=== PATIENT | male | born 1935 | race Caucasian/White ===

== ENCOUNTER → 2018-04-20 | Outpatient (CLI) | payer OTHER ==
[~2018-04-20] MED LIST: ALLOPURINOL100 MG PO; ASPIRIN ADULT L81 M1 PO; ATENOLOL25 MG PO; ATORVASTATIN CA20 M1 PO; BACTROBAN CREAM15 GM T; CLEOCIN150 MG PO; CO Q 10; CORDROL20 MG PO; LIPITOR20 MG PO; OSTEO-BI-FLEX 21 TAB PO; SAW PALMETTO; VICODIN 5/500 505 MG PO; ZOCOR20 MG PO; [UNRECOGNIZED DRUG - OTHER]
== END | disposition home or self-care (01) ==
LOC: LAB 08:16
DX: R51 Headache (principal)

== ENCOUNTER 2018-06-25 04:20 | Emergency (ER) | payer OTHER ==
[~2018-06-25] VITALS: Ht 170.1 cm; Wt 72.6 kg
== END 2018-06-25 05:11 | disposition home or self-care (01) ==
LOC: ED 04:20
DX: R04.0 Epistaxis (principal); F43.9 Reaction to severe stress, unspecified; Z88.8 Allergy status to other drugs, medicaments and biological substances; Z79.899 Other long term (current) drug therapy; Z79.82 Long term (current) use of aspirin

== ENCOUNTER 2019-01-28 10:32 | Inpatient (IN) | payer OTHER ==
[~2019-01-28] VITALS: Ht 172.7 cm; Wt 68.1 kg
--- NOTE | ~2019-01-28 | PR ---
[place], [place] PROGRESS NOTE [id number] UNIT #: [id number] ROOM: 523 DOCTOR: PRINCE, PHD STACIA BIRTHDATE: [birth year] DOS: 01/31/2019 SUBJECTIVE: I followed up with the patient regarding competency. The patient had made a statement to his son about needing to withdraw $1300 out of his bank account to throw a alliance party to celebrate his 's birthday. The patient has been apparently making poor judgment calls regarding his finances and giving money away. I administered the MoCA and judgment portions of the Cognistat to further assess his cognitive abilities. The patient earned an 18/30 on the MoCA with an intact score being 26. Mini trials B, Necker cube copy and clock drawing were all impaired. He could not draw the correct numbers on the clock or draw the hands at the right place. Attention was noteworthy for some impairment on serial 7 subtractions where he was able to complete 2/5 correct subtractions. He could perform a minimum of 5 digits forward and 3 digits backwards. With respect to language abilities, he made one small error of addition; on a test of repetition, he was able to produce 11 words in 1 minute, on verbal fluency, naming was intact. On a test of memory, the patient was able to recall 5/5 words and 3/5 words on immediate recall trials and 1/5 words after a brief delay. He was able to recall an additional 2 words with category cues and another two words with multiple choice. Verbal, abstraction was noteworthy for concreteness. On judgment questions taken from the Cognistat, he was able to provide some adequate answers, but needed some prompting to stay on task. The patient states that his son helps make decisions for him and he is very happy with this arrangement. His stepson is his durable power of document review attorney and health care power of document review attorney as well. Given the patient's significant executive functioning and memory issues as well as questionable judgment as well as poor judgment while living at home, he does not appear to be competent to make decisions at this time. He will likely need increased support at this time. DIAGNOSES: Brief psychotic disorder, unspecified neurocognitive disorder. RECOMMENDATIONS: The patient would benefit from utilizing his durable and healthcare power of document review attorney for decision making at this time. [place], [place] PROGRESS NOTE NAME: CARMEN WALTERS UNIT #: [id number] ROOM: 523 DOCTOR: PHD STACIA COLEY BIRTHDATE: [birth year] Suzanne Coley PhD CM:KEVIN [phone] PHD STACIA COLEY 02/01/19 0426 interface
--- NOTE | ~2019-01-28 | CON ---
[place], [place] REPORT OF CONSULTATION NAME: CARMEN WALTERS UNIT #: [id number] ROOM: 523 DOCTOR: ERIK VENTURA MD BIRTHDATE: [birth year] DOS: 01/29/2019 CHIEF COMPLAINT: "Are you a Taoist. If you are you understand. I pray to God and I was healed." HISTORY OF PRESENT ILLNESS: This is an 83-year-old white male who went to the Emergency Room at [facility] due to a change in mental status with bilateral lower leg edema. 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 He has had a colostomy with reversal and a recent craniotomy in May. The patient has been experiencing significant visual hallucinations and reported increased paranoia. The patient did state that God was coming in his house and Satan came into his house in the form of a fly flying around the house. The patient has also been making other bizarre comments. The patient has no previous psychiatric history. MENTAL STATUS EXAMINATION: This morning, the patient is alert and oriented with some time gaps. Mood does seem to be fairly euthymic and he was in good spirits. He reports no pain issues. He also reports good sleep and appetite. He does seem to be somewhat religiously preoccupied, although I do believe some of this is his baseline belief system. He does report seeing things that he at times questions if they are real. DIAGNOSIS: Brief psychotic disorder. PLAN: I will go ahead and start him on a low dose of Risperdal at night. I will avoid any medicines during the day as not to sedate him. We will start with Risperdal 1 mg at bedtime. The patient should follow up in our office if he returns back home if he returns to a long-term care facility for further treatment. This will be up to hospice whether or not they want psychiatric intervention. ERIK VENTURA MD CM:CONSTR:REPORT OF CONSULTATION 0949 01/29/19 1037 interface
--- NOTE | ~2019-01-28 | CON ---
[place], [place] REPORT OF CONSULTATION NAME: CARMEN WALTERS UNIT #: [id number] ROOM: 523 DOCTOR: PRINCE, PHD STACIA BIRTHDATE: [birth year] DOS: 01/30/2019 HISTORY OF PRESENT ILLNESS: The patient is an 83-year-old male referred by Xiomara Espinoza for competency evaluation. At the present time, the patient is on the 5th floor at [facility]. The patient had a change in mental status. His family is concerned about recent behaviors where he has refused his home health aide and has been making questionable choices with his finances. They are concerned about him being able to live at home. He is a . He reports having 3 children. 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 He denied alcohol, tobacco and illegal drug use. PAST MEDICAL HISTORY: Acute anterior epistaxis, CAD, closed rib fracture, colon cancer, elevated blood pressure, gout, hypertension, hypercholesterolemia, lumbar transverse process fracture, metastatic cancer. MEDICATIONS: Lasix, Risperdal, DuoNeb, Tenormin, Lovenox, Keppra, Phazyme 125, morphine sulfate concentrate, Dulcolax, milk of magnesia, Zofran, Tylenol, Levaquin, Decadron, K-Dur. The patient was sitting comfortably, in no apparent distress. He was awake, alert and oriented to person, place and generally to time. He could name. He could discuss his medical history at length and discussed some of his medications. He could spell world forward and backward. He could not complete any serial 7 subtractions. He was able to name the current president, the past president and discuss at length current events. Mood was euthymic and affect was appropriately wide ranging. He denied suicidal and homicidal ideation, plan, and intent. Speech and language were within normal limits conversationally. Thought process was tangential at times. He responded well to redirection. He appeared to be religiously preoccupied, although did not make any bizarre statements. He did not appear to be responding to any internal stimuli. He denied current hallucinations. He did appear to have some difficulty with short and long-term memory and conversation. He was seen by Dr. Bell on 01/29/2019 and started on Risperdal at night. DIAGNOSIS: Brief psychotic disorder. PLAN: I will meet with the patient tomorrow to continue to assess his mental status and determination of competency. Thank you very much for this consult. [place], [place] REPORT OF CONSULTATION NAME: CARMEN WALTERS UNIT #: [id number] ROOM: 523 DOCTOR: PRINCE, PHD STACIA BIRTHDATE: [birth year] Suzanne Coley, PhD CM:CONSTR:REPORT OF CONSULTATION 1434 01/31/19 0717 interface
--- NOTE | ~2019-01-28 | EKG ---
[place], [place] ELECTROCARDIOGRAM REPORT NAME: CARMEN WALTERS UNIT #: [id number] ROOM: DOCTOR: YAAKOV DRAFT REPORT BIRTHDATE: [birth year] [facility] Test Date: 2019-01-28 Test Time: 10:44:35 Pat Name: CARMEN WALTERS Department: Patient ID: ELOH- Room: Gender: Diesel Engine Inspector: : 1935 Requested By: YANIV SOMMER Order Number: [id number] Reading MD: Measurements Intervals [place] Rate: 84 P: 57 [place]: 200 QRS: 15 QRSD: 90 T: 193 QT: 344 QTc: 407 Interpretive Statements Sinus rhythm Repol abnrm suggests ischemia, anterolateral No previous ECG available for comparison CM:EKGRPT:ELECTROCARDIOGRAM REPORT 1044 0745 YANIV NUNO DRAFT REPORT YANIV SOMMER M.D.
--- NOTE | ~2019-01-28 | EKG ---
[place], [place] ELECTROCARDIOGRAM REPORT NAME: CARMEN WALTERS UNIT #: [id number] ROOM: 523 DOCTOR: YAAKOV DRAFT REPORT BIRTHDATE: [birth year] [facility] Test Date: 2019-01-28 Test Time: 10:44:35 Pat Name: CARMEN WALTERS Department: Room: 523 Gender: M Water Quality Assistant: : 1935 Requested By: YANIV SOMMER Order Number: [id number] Reading MD: Lalo Connors MD Measurements Intervals [place] Rate: 84 P: 57 [place]: 200 QRS: 15 QRSD: 90 T: 193 QT: 344 QTc: 407 Interpretive Statements Sinus rhythm Repol abnrm suggests ischemia, anterolateral Electronically Signed On 01-29-2019 6:51:43 PDT by Lalo Connors MD CM:EKGRPT:ELECTROCARDIOGRAM REPORT 1044 0651 YANIV NUNO DRAFT REPORT YANIV SOMMER M.D.
[2019-01-28] MEDS ORDERED: KEPPRA500 MG PO (10:35)
[2019-01-28] MEDS ORDERED: DEXAMETHASONE4 MG PO (10:35)
--- NOTE | 2019-01-28 10:35 | NUR ---
PT BROUGHT BY FAMILY FOR INCREASED CONFUSION, RASTAFARI AND POLITICAL DELUSIONS, MODERATE INCREASE IN PITTING EDEMA OVER THE LAST TWO DAYS. 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 THERE IS 3+ PITTING EDEMA B/L AND RALES IN LUNGS. PT DENIES ANY SOB OR ANY OTHER COMPLAINTS.
[2019-01-28] MEDS ORDERED: TENORMIN25 M1 PO (10:36)
[2019-01-28 10:38] VITALS: BP 136/5; BP 136/58
[2019-01-28] MEDS ORDERED: TYLENOL325 M2 PO (10:38)
[2019-01-28] MEDS ORDERED: MORPHINE S20 MG/5 ML PO (10:38)
[2019-01-28] MEDS ORDERED: GAS-X125 MG PO (10:38)
--- NOTE | 2019-01-28 10:45 | NUR ---
AT FAMILY AND POWER OF ARCHIVIST'S REQUEST, DNR-CC DOCUMENTATION IS NOW BEING GENERATED AND PLACED ON FILE AND COPIES PROVIDED TO FAMILY.
[2019-01-28 10:55] LABS: HEMOGLOBIN 11.8 g/dl (14.0-18.0); MEAN CELL VOLUME 84.5 fl (80.0-94.0); MEAN CORPUSCULAR HGB 28.5 pg (27.0-31.0); MEAN CORPUSCULAR HGB CONC 33.7 g/dl (33.0-37.0); MEAN PLATELET VOLUME 9.8 fl (9.6-12.3); NUCLEATED RED BLOOD CELL 0.2 % (0.0-0.0); PLATELET COUNT AUTOMATED 150 10*3/uL (130-400); RED BLOOD COUNT 4.14 10*6/uL (4.50-5.90); RED CELL DISTRI WIDTH 16.2 % (0-14.5); WHITE BLOOD COUNT 14.2 10*3/uL (4.8-10.8)
[2019-01-28 10:58] LABS: BILIRUBIN NEGATIVE (NEGATIVE); BLOOD TRACE-INTACT (NEGATIVE); CLARITY SL CLOUDY (CLEAR); COLOR YELLOW (YELLOW); GLUCOSE TRACE (NEGATIVE); KETONE NEGATIVE (NEGATIVE); LEUKO ESTERASE NEGATIVE (NEGATIVE); NITRITE NEGATIVE (NEGATIVE); PH 5.5 (5.0-9.0); SPECIFIC GRAVITY >= 1.030 (1.005-1.030)
[2019-01-28 11:11] LABS: BACTERIA 2+; COARSE GRANULAR CAST 20-30; FINE GRANULAR CAST TNTC; MUCOUS 2+
[2019-01-28 11:14] LABS: PLATELET SUFFICIENCY NORMAL (NORMAL); TOTAL CELLS COUNTED 100 #CELLS
[2019-01-28 11:26] LABS: ALBUMIN 2.7 gm/dl (3.1-4.5); ALKALINE PHOSPHATASE 237 U/L (45-117); BUN 40 mg/dl (7-24); CHLORIDE 98 mmol/L (98-107); CREATININE 1.21 mg/dL (0.70-1.30); POTASSIUM 3.9 mmol/L (3.5-5.1); SGOT/AST 19 IU/L (3-35); SGPT/ALT 38 U/L (12-78); SODIUM 132 mmol/L (136-145)
[2019-01-28 12:24] VITALS: BP 134/60
--- NOTE | 2019-01-28 12:26 | NUR ---
ADMISSION ORDER INPUT.
--- NOTE | 2019-01-28 12:57 | NUR ---
STILL AWAITING BED ASSIGNMENT. NO CHANGE IN PT CONDITIO OR COMPLAINT. SALINE AND LEVAQUIN INFUSING ORDERED. FAMILY AT BEDSIDE, VITALS STABLE AND WITHIN NORMAL LIMITS.
[2019-01-28] MEDS ORDERED: ATIVAN1 MG PO (13:12)
[2019-01-28] MEDS ORDERED: ROBITUSSIN5 ML PO (13:13)
[2019-01-28 13:36] VITALS: BP 163/69
--- NOTE | 2019-01-28 15:15 | NUR ---
NOTIFIED DR. ANDERSON OF CRITICAL LACTIC ACID OF 2.2, NO NEW ORDERS AT THIS TIME
[2019-01-28 16:00] VITALS: BP 115/65
--- NOTE | 2019-01-28 17:34 | NUR ---
DR. ANDERSON AWARE OF INCREASE IN LACTIC ACID LEVEL CRITICAL RESULT OF 4.1, ORDER TO HOLD 0600 DOSE OF LASIX TOMORROW SO THEY CAN REEVALUATE PATIENT
[2019-01-28 20:00] VITALS: BP 107/55
--- NOTE | 2019-01-28 21:00 | NUR ---
SITTING AT BEDSIDE WITH NO DISTRESS NOTED. RESPIRATIONS EASY. LUNGS DIMINISHED, CLEAR. PULSE OX 97% RA. +3 PITTING PEDAL EDEMA, TUBI-LUBE MAN APPLIED. CALL LIGHT WITHIN REACH. NO VOICED COMPLAINTS
--- NOTE | 2019-01-28 21:10 | NUR ---
24 HR chart check completed.
[2019-01-29] VITALS: BP 104/62
--- NOTE | 2019-01-29 | NUR ---
SLEEPING. NO DISTRESS NOTED. RESPIRATIONS EASY. VSS. CALL LIGHT WITHIN REACH
--- NOTE | 2019-01-29 06:00 | NUR ---
RESTED THROUGHOUT NIGHT WITH NO DISTRESS NOTED. RESPIRATIONS EASY. CALL LIGHT WITHIN REACH. NO VOICED COMPLAINTS THIS SHIFT
[2019-01-29 06:36] LABS: HEMATOCRIT 34.7 % (42.0-52.0); HEMOGLOBIN 11.7 g/dl (14.0-18.0); MEAN CELL VOLUME 83.8 fl (80.0-94.0); MEAN CORPUSCULAR HGB 28.3 pg (27.0-31.0); MEAN CORPUSCULAR HGB CONC 33.7 g/dl (33.0-37.0); PLATELET COUNT AUTOMATED 121 10*3/uL (130-400); RED BLOOD COUNT 4.14 10*6/uL (4.50-5.90); WHITE BLOOD COUNT 9.7 10*3/uL (4.8-10.8)
[2019-01-29 06:46] LABS: ALBUMIN 2.7 gm/dl (3.1-4.5); ALKALINE PHOSPHATASE 228 U/L (45-117); BUN 32 mg/dl (7-24); CHLORIDE 95 mmol/L (98-107); CREATININE 0.92 mg/dL (0.70-1.30); PHOSPHOROUS 2.9 mg/dL (2.5-4.9); SGOT/AST 19 IU/L (3-35); SGPT/ALT 35 U/L (12-78); SODIUM 131 mmol/L (136-145); TOTAL PROTEIN 6.1 gm/dL (6.4-8.2)
[2019-01-29 07:25] LABS: TOTAL CELLS COUNTED 100 #CELLS
[2019-01-29 07:30] LABS: PLATELET SUFFICIENCY LOW (NORMAL)
--- NOTE | 2019-01-29 07:47 | NUR ---
PHYSICAL THERAPY PT EVAL COMPLETED TODAY ON LEVEL 5: FULL EVALUATION TO FOLLOW. RECOMMEND PT WHILE HERE TO ADDRESS DECREASED STRENGTH, ENDURANCE , BALANCE AND THUS DECREASED FUNCTIONAL MOBILITY. PT EVAL IS MODERATE COMPLEXITY BASED ON CHART REVIEW, TEST RESULTS AND EVALUATION: [id number]. D/C RECOMMENDATIONS AT THIS TIME ARE HOME WITH HOSPICE AND FAMILY SUPPORT. THANK YOU FOR REFERRAL JEREMY CAMARA PT
[2019-01-29 08:00] VITALS: BP 130/64
--- NOTE | 2019-01-29 09:35 | NUR ---
CONSULT PLACED TO DR. VENTURA, ENDY SIMON COLD MEAT CHEF HAS ALREADY SPOKE TO DR. VENTURA, REGARDING NEW CONSULT. RN DID NOT CALL HIM FOR CONSULT.
[2019-01-29 12:00] VITALS: BP 122/66
--- NOTE | 2019-01-29 13:30 | NUR ---
Time: 1329 A 83 year old MALE admitted to 5E under services of LISA MUÑIZ DO. Pt. arrived via stretcher from ER. Chief complaint: CONFUSION. MEHUL OCAMPO
--- NOTE | 2019-01-29 19:17 | NUR ---
24 HR chart check completed.
[2019-01-29 20:00] VITALS: BP 130/63
--- NOTE | 2019-01-29 20:00 | NUR ---
SITTING ON TOILET. C/O CONSTIPATION. DULCOLAX ADMINISTERED EARLIER. WILL MONITOR
--- NOTE | 2019-01-29 21:00 | NUR ---
SITTING AT BEDSIDE WITH NO ACUTE DISTRESS NOTED. RESPIRATIONS EASY. LUNGS DIMINISHED, CLEAR. PULSE OX 99% RA. ABD SOFT WITH NORMO BS. +3 PITTING PEDAL EDEMA - TUBI-EXTRACT PULLER IN PLACE AND PATIENT ENCOURAGED TO ELEVATE BLE. CALL LIGHT WITHIN REACH. NO VOICED COMPLAINTS
--- NOTE | 2019-01-29 22:50 | NUR ---
CONTINUES TO C/O CONSTIPATION DESPITE EARLIER LARGE BM. MOM PROVIDED.
[2019-01-30] VITALS: BP 111/61
--- NOTE | 2019-01-30 | NUR ---
PATIENT ASSISTED TO BED AFTER BM. RESPIRATIONS EASY. VSS. CALL LIGHT WITHIN REACH. NO FURTHER VOICED COMPLAINTS
--- NOTE | 2019-01-30 03:00 | NUR ---
REMAINS AWAKE. NO DISTRESS NOTED. IN AND OUT OF BR, MULTIPLE SOFT, FORMED BM'S. DECLINES BATH. CALL LIGHT WITHIN REACH. NO VOICED COMPLAINTS
--- NOTE | 2019-01-30 06:30 | NUR ---
AWAKENED FOR AM MEDS.
[2019-01-30 06:44] LABS: HEMATOCRIT 35.5 % (42.0-52.0); MEAN CELL VOLUME 83.7 fl (80.0-94.0); MEAN CORPUSCULAR HGB 28.3 pg (27.0-31.0); MEAN CORPUSCULAR HGB CONC 33.8 g/dl (33.0-37.0); MEAN PLATELET VOLUME 10.5 fl (9.6-12.3); PLATELET COUNT AUTOMATED 140 10*3/uL (130-400); RED BLOOD COUNT 4.24 10*6/uL (4.50-5.90); RED CELL DISTRI WIDTH 16.2 % (0-14.5); WHITE BLOOD COUNT 10.1 10*3/uL (4.8-10.8)
[2019-01-30 07:17] LABS: ALBUMIN 2.9 gm/dl (3.1-4.5); BUN 33 mg/dl (7-24); CHLORIDE 91 mmol/L (98-107); CREATININE 1.21 mg/dL (0.70-1.30); SGOT/AST 18 IU/L (3-35); SGPT/ALT 35 U/L (12-78)
[2019-01-30 07:19] LABS: ALKALINE PHOSPHATASE 237 U/L (45-117); TOTAL PROTEIN 6.3 gm/dL (6.4-8.2)
[2019-01-30 07:22] LABS: SODIUM 131 mmol/L (136-145)
[2019-01-30 07:24] LABS: POTASSIUM 2.8 mmol/L (3.5-5.1)
[2019-01-30 07:49] LABS: OVALOCYTES FEW; PLATELET SUFFICIENCY NORMAL (NORMAL); TOTAL CELLS COUNTED 100 #CELLS
[2019-01-30 08:00] VITALS: BP 107/89
--- NOTE | 2019-01-30 09:15 | NUR ---
PHYSICAL THERAPY Patient seen this am 1;1 for therapy visit and was sitting up in bedsid chair upon therpaist arrival. Patient was very pleasant this morning, voicing no new c/o's and presented with B LE idalia wraps secondary to increased B foot edema. Patient instructed to elevate LE's via use of reclining bedside chair, along with PRN ankle pumps for edema control. Patient transfers sit to stand SBA and ambulates SBA, 150'x 1, wh walker, demonstrating smooth, even stride and only mild fatigue. Patient also no LOB during backward walk, 5'x 1 and 180 turns, returning to bedside chair with no c/o's. Patient remained in chair with LE's elevated, call light, tray table, cell phone and body alarm for safety. Will continue per POC as tolerated, total treatment time 14 minutes. Good Eaton, GERMINATION TESTING MANAGER
--- NOTE | 2019-01-30 10:30 | NUR ---
OT referral received.Patient on [facility] hospice service.Awaiting further information before proceeding with evaluation. Agustina Lopez OTR/L
--- NOTE | 2019-01-30 11:17 | NUR ---
DR. MORRISON'S OFFICE STAFF NOTIFIED OF CONSULT RE: COMPETENCY EVALUATION.
[2019-01-30 12:00] VITALS: BP 110/52
[2019-01-30 16:00] VITALS: BP 124/64
[2019-01-30 20:00] VITALS: BP 114/55
[2019-01-31] VITALS: BP 115/66
--- NOTE | 2019-01-31 07:43 | NUR ---
PT IS AWAKE AND SITTING UP ON THE SIDE OF THE BED. HE STATES THAT HE IS FEELING WELL AND JUST WAITING ON HIS BREAKFAST TO ARRIVE. RESPS ARE EASY AND NONLABORED. NO C/O OF PAIN OR DISCOMFORT AT THIS TIME. CALL LIGHT IS WITHIN REACH, WILL CONTINUE TO MONITOR.
--- NOTE | 2019-01-31 07:48 | NUR ---
24 HR CHART CHECK COMPLETE.
[2019-01-31 08:00] VITALS: BP 119/63
[2019-01-31 09:55] LABS: HEMATOCRIT 35.4 % (42.0-52.0); HEMOGLOBIN 11.9 g/dl (14.0-18.0); MEAN CELL VOLUME 85.7 fl (80.0-94.0); MEAN CORPUSCULAR HGB 28.8 pg (27.0-31.0); MEAN CORPUSCULAR HGB CONC 33.6 g/dl (33.0-37.0); MEAN PLATELET VOLUME 10.2 fl (9.6-12.3); PLATELET COUNT AUTOMATED 136 10*3/uL (130-400); RED BLOOD COUNT 4.13 10*6/uL (4.50-5.90); RED CELL DISTRI WIDTH 16.4 % (0-14.5); WHITE BLOOD COUNT 12.6 10*3/uL (4.8-10.8)
[2019-01-31 10:13] LABS: ALBUMIN 2.7 gm/dl (3.1-4.5); ALKALINE PHOSPHATASE 242 U/L (45-117); BUN 30 mg/dl (7-24); CHLORIDE 93 mmol/L (98-107); CREATININE 1.37 mg/dL (0.70-1.30); SGOT/AST 22 IU/L (3-35); SGPT/ALT 33 U/L (12-78); SODIUM 131 mmol/L (136-145); TOTAL PROTEIN 6.1 gm/dL (6.4-8.2)
[2019-01-31 10:15] LABS: PLATELET SUFFICIENCY NORMAL (NORMAL); SCHISTOCYTES FEW; TOTAL CELLS COUNTED 100 #CELLS
[2019-01-31 10:16] LABS: OVALOCYTES FEW; VACUOLATION OF NEUTROPHILS SLIGHT
[2019-01-31 10:22] LABS: POTASSIUM 3.9 mmol/L (3.5-5.1)
--- NOTE | 2019-01-31 11:29 | NUR ---
Occupational Therapy evaluation completed on 5 with full eval to follow. Precaution include fall risk, impulsivity,wh walker use, brief psychotic episode, being evaluated for competency,moderate complexity level 08462 via chart review, testing and evaluation. REcommend return home w/ family and 24 hr supervision and assist or at least assisted living v.s. LTC. Thank you. Agustina Lopez OTR/L
[2019-01-31 12:00] VITALS: BP 116/56
--- NOTE | 2019-01-31 12:47 | NUR ---
PT IS HER [facility]ER [facility]. WILL CONTINUE TO FOLLOW.
--- NOTE | 2019-01-31 14:43 | NUR ---
PHYSICAL THERAPY Patient presented to therapy in sitting position in bedside chair with body alarm attached to patient. Patient gives informed consent for treatment. Patient was identified by name and . Patient performed sit to stand transfer from bedside chair with CGA X 1. Patient ambulated 100' x 5 seperate gaits with Wh Walker and CGA X 1 , to mostly Close Supervision and NO LOB SOB or other difficulty. Patient performed TUG TEST in 35 seconds total with CGA. Patient performed 8 Xs sit to stands in 31 seconds total with SBA with use of UEs to push off armrests of chair. Patient was left sitting in bedside chair with LEs ELEVATED, CALL LIGHT WITHIN REACH, AND CHAIR ALARM TESTED AND ATTACHED TO PATIENT. Patient was 1:1 with this ABSORBER OPERATOR for 26 minutes total. KRISHAN LIEBERMAN ABSORBER OPERATOR
--- NOTE | 2019-01-31 14:45 | NUR ---
OT NOTE Pt was seen this P.M. 1:1 for 15 minute OT session. Upon arrival pt was sitting upright in the recliner. Pt identified by name and and had no complaints at this time. Pt completed sit to stand from chair level with CGA for safety. Functional mobility completed into the bathroom with CGA and use of w/w for UE support. There he transferred on/off standard commode with CGA for safety. Pt then stood sink side while washing his hands with CGA. Functional mobility completed back to the recliner where he was left sitting upright in the recliner with call light in hand, tray table in place, and phone in reach. Continue with rec D/C plan to home with 24 hour supervision and assist versus SENIOR CARE/LTC. TERRANCE Hand/Tsering
[2019-01-31 16:00] VITALS: BP 95/50
[2019-01-31 20:00] VITALS: BP 104/59
[2019-02-01] VITALS: BP 116/58
[2019-02-01 08:00] VITALS: BP 127/70
--- NOTE | 2019-02-01 10:39 | NUR ---
MANAGER LIFE spoke with [facility] about placement for the patient. [facility] stated they would not have a bed until Wednesday. If one were to open up before Wednesday they will let us know. The referral is still being review. Will await acceptance/denial. -PADMINI Wade
--- NOTE | 2019-02-01 10:41 | NUR ---
PHYSICAL THERAPY Patient seen this am 1;1 for therapy visit and was sitting up in bedside chair upon therapist arrival. Patient was very pleasant, voicing no new c/o's and performed seated B LE therex, all planes, x 15 reps each to increase LE strength. Patient then transfers sit to stand, CGA, ambulating > 200 feet x 1, use of wh walker and demonstrated slow but steady vanda. Patient also able to side step and walk backwards without LOB this session and returned to bedside chair with call light, tray table, telephone and body alarm for safety. Good Eaton, HEAD OF IT
--- NOTE | 2019-02-01 11:12 | NUR ---
FAMILY WANTS PT TO GO TO [facility] ON DISCHARGE WITH HOSPICE. NO BEDS AVAILABLE AT THIS TIME AT [facility]. WILL CONTINUE TO FOLLOW.
[2019-02-01 12:00] VITALS: BP 125/71
[2019-02-01] MEDS ORDERED: LASIX40 MG PO (13:58)
[2019-02-01] MEDS ORDERED: Humalog SQ (13:58)
[2019-02-01] MEDS ORDERED: K-TAB20 MEQ PO (13:58)
[2019-02-01] MEDS ORDERED: RISPERIDONE1 MG PO (13:58)
[2019-02-01] MEDS ORDERED: HUMALOG100 UNIT/1 SQ (14:03)
--- NOTE | 2019-02-01 14:24 | NUR ---
PHYSICAL THERAPY CO-SIGN I approve of the Physical Therapy notes written above. SHIVAM AVALOS PT,DPT
[2019-02-01 16:00] VITALS: BP 126/70
[2019-02-01 20:00] VITALS: BP 116/67
[2019-02-02] VITALS: BP 106/61
[2019-02-02 08:00] VITALS: BP 98/53
[2019-02-02 08:28] LABS: BUN 29 mg/dl (7-24); CHLORIDE 94 mmol/L (98-107); CREATININE 0.97 mg/dL (0.70-1.30); POTASSIUM 4.5 mmol/L (3.5-5.1); SODIUM 132 mmol/L (136-145)
--- NOTE | 2019-02-02 10:30 | NUR ---
Faxed over nurses, physician, and psychological evaluation to [facility] for level 2 review. -PADMINI Wade
--- NOTE | 2019-02-02 10:32 | NUR ---
Pt was seen for 30 minutes in OT beginning with supine to sit at EOB without difficulty. Sit to stand with distant supervision due to hx of falls F/B fxl mobility with w/walker to bathroom for toileting & bathing. At sink, pt able to perform sponge bathing for entire body with supervision only & set up. Pt able to perfom all aspects of bathing & dressing without AE this date. Performed toileting & hygiene without assistance. Call light withn reach. Continue with OT POC. Thania GARCIA/Tsering
[2019-02-02 12:00] VITALS: BP 109/53
--- NOTE | 2019-02-02 12:39 | NUR ---
PT IS WAITING FOR A BED AT [facility] [place] TO GO WITH HOSPICE. WILL CONTINUE TO FOLLOW.
[2019-02-02 16:00] VITALS: BP 96/52
--- NOTE | 2019-02-02 16:21 | NUR ---
OCCUPATIONAL THERAPY CO-SIGN I approve of the Occupational Therapy notes written above. LILIYA MEHTA OTR/Tsering
[2019-02-02 20:00] VITALS: BP 97/52
[2019-02-03] VITALS: BP 101/53
--- NOTE | 2019-02-03 05:15 | NUR ---
24 HR chart check completed.
[2019-02-03 06:47] LABS: HEMATOCRIT 31.4 % (42.0-52.0); HEMOGLOBIN 10.4 g/dl (14.0-18.0); MEAN CELL VOLUME 86.5 fl (80.0-94.0); MEAN CORPUSCULAR HGB 28.7 pg (27.0-31.0); MEAN CORPUSCULAR HGB CONC 33.1 g/dl (33.0-37.0); MEAN PLATELET VOLUME 10.7 fl (9.6-12.3); PLATELET COUNT AUTOMATED 87 10*3/uL (130-400); RED BLOOD COUNT 3.63 10*6/uL (4.50-5.90); RED CELL DISTRI WIDTH 17.1 % (0-14.5); WHITE BLOOD COUNT 8.1 10*3/uL (4.8-10.8)
--- NOTE | 2019-02-03 07:02 | NUR ---
PADMINI received notification that the patients PASRR Level 2 was denied and the patient is unable to go to [facility]. Will reach out to the family this morning. -PADMINI Wade
[2019-02-03 07:23] LABS: OVALOCYTES FEW; PLATELET SUFFICIENCY LOW (NORMAL); TOTAL CELLS COUNTED 100 #CELLS
[2019-02-03 08:00] VITALS: BP 103/51
--- NOTE | 2019-02-03 09:12 | NUR ---
HOME OFFICE REPRESENTATIVE reached out to Reji Stevenson the patients next of Kin. HOME OFFICE REPRESENTATIVE informed him of the [facility] denial. HOME OFFICE REPRESENTATIVE did explain trying to get the patient into [facility]. He stated he would have to speak to his . HOME OFFICE REPRESENTATIVE did explain Shala from [facility] would be reaching out to him to explain and go over the cost along with reason for the denial. Will await to hear back from Shala about [facility]. -PADMINI Wade
--- NOTE | 2019-02-03 10:37 | NUR ---
PADMINI just recieved notice from Shala. A call was placed to the PAS/RR about the wording of the denial. Shala stated the patient is now approved to go to [facility]. She stated she just spoke with the family and will inform them of the change of events. PADMINI notified the Hospitalist RN Coordinator.-PADMINI Wade
--- NOTE | 2019-02-03 11:05 | NUR ---
ASSOCIATE MATERIAL HANDLER spoke with the patients family as they were at bedside. The family will transport the patient to [facility] upon discharge. -PADMINI Wade
--- NOTE | 2019-02-03 11:16 | NUR ---
OT NOTE Attempted to see pt this A.M. for OT session and upon arrival pt was receiving patient care. Will check back at a later time/date and continue with POC as indicated. TERRANCE Hand/Tsering
--- NOTE | 2019-02-03 11:56 | NUR ---
PT IS BEING DISCHARGED TODAY AND WILL GO TO [facility]. FAMILY WILL TRANSPORT.
--- NOTE | 2019-02-03 12:47 | NUR ---
PATIENT TAKEN BY WHEEL CHAIR BY FAMILY WITH BELONGINGS
--- NOTE | 2019-02-06 08:55 | NUR ---
OCCUPATIONAL THERAPY CO-SIGN I approve of the Occupational Therapy notes written above. LILIYA MEHTA OTR/Tsering
== END 2019-02-03 12:47 | disposition hospice, home (50) | DRG 871 ==
LOC: ED → 5E 12:35 → EDHOLD 12:35 → 5E 13:05
PROVIDERS: Emergency Medicine; Registered Nurse; ADMIT Family Medicine
DX: A41.9 Sepsis, unspecified organism (principal); J15.6 Pneumonia due to other Gram-negative bacteria; E43 Unspecified severe protein-calorie malnutrition; N17.0 Acute kidney failure with tubular necrosis; G93.41 Metabolic encephalopathy; E87.1 Hypo-osmolality and hyponatremia; E87.2 Acidosis; F23 Brief psychotic disorder; N39.0 Urinary tract infection, site not specified; R65.20 Severe sepsis without septic shock; I25.10 Atherosclerotic heart disease of native coronary artery without angina pectoris; M10.9 Gout, unspecified; I10 Essential (primary) hypertension; E78.00 Pure hypercholesterolemia, unspecified; D64.9 Anemia, unspecified; Z66 Do not resuscitate; Z51.5 Encounter for palliative care; R41.9 Unspecified symptoms and signs involving cognitive functions and awareness; R73.9 Hyperglycemia, unspecified; Z85.038 Personal history of other malignant neoplasm of large intestine; Z79.52 Long term (current) use of systemic steroids; Z88.8 Allergy status to other drugs, medicaments and biological substances; Z79.899 Other long term (current) drug therapy; Z79.82 Long term (current) use of aspirin; Z93.3 Colostomy status; Z87.81 Personal history of (healed) traumatic fracture; Z98.42 Cataract extraction status, left eye; Z98.41 Cataract extraction status, right eye; Z85.118 Personal history of other malignant neoplasm of bronchus and lung; Z85.841 Personal history of malignant neoplasm of brain; Z68.24 Body mass index [BMI] 24.0-24.9, adult